=== PATIENT | male | born 1955 | race Caucasian/White ===

== ENCOUNTER 2025-04-02 20:28 | Inpatient (IN) | payer OTHER ==
[~2025-04-02] VITALS: Ht 175.3 cm; Wt 75.0 kg
[2025-04-02 21:40] LABS: Basophils # (auto) 0 10 ^3/uL (0-0.2); Basophils % (auto) 0.1 % (0.0-2.0); Eosinophils # (auto) 0 10 ^3/uL (0-0.8); Hematocrit 30.3 % (41.0-53.0); Hemoglobin 10.6 g/dL (13.5-17.5); Lymphocytes # (auto) 0.6 10 ^3/uL (0.4-5.4); Lymphocytes % (auto) 4.4 % (10.0-50.0); Mean Corpuscular Hgb Conc. 35.1 g/dL (32.0-36.0); Monocytes # (auto) 0.5 10 ^3/uL (0-1.3); Monocytes % (auto) 3.4 % (0.0-12.0); Neutrophils # (auto) 12.4 10 ^3/uL (1.6-8.6); Neutrophils % (auto) 92.1 % (37.0-80.0); Platelet Count (auto) 201 10^3/uL (140-450); Red Blood Cells 3.22 10^6/uL (4.5-5.90); White Blood Cell 13.4 10^3/uL (4.4-10.8)
--- NOTE | 2025-04-02 21:42 | ECG ---
[facility] Test Date: 2025-04-02 Test Time: 20:50:31 Pat Name: DICK LEVINE Department: ED Room: 0296T Gender: M Director Advanced: NAZ : 1955 Requested By: JANEL RIVERA Order Number: [id number] Reading MD: Raymundo Yates Measurements Intervals [place] Rate: 51 P: 70 NC: 160 QRS: 13 QRSD: 105 T: -22 QT: 444 QTc: 409 Interpretive Statements Sinus rhythm RSR' in V1 or V2, probably normal variant Borderline T abnormalities, inferior leads Electronically Signed On 04-04-2025 12:47:20 PDT by Raymundo Yates Please click the below link to view image of tracing.
[2025-04-02 21:50] LABS: Chloride 102 mmol/L (98-107); Potassium 4.1 mmol/L (3.5-5.1); Sodium 133 mmol/L (136-145)
[2025-04-02 21:51] LABS: Anion Gap 10 (5-15); Calcium 8.3 mg/dL (8.7-10.4); Carbon Dioxide 21 mmol/L (20-31)
[2025-04-02 21:56] LABS: BUN/Creatinine Ratio 16.3 (10.0-20.0); Blood Urea Nitrogen 17 mg/dL (9-23)
[2025-04-02 21:59] LABS: Glucose 160 mg/dL (74-106)
[2025-04-02] MEDS: SODIUM CHLORIDE 0.9% 1,000 ML IV ONE (22:10)
[2025-04-02] MEDS: SODIUM CHLORIDE 0.9% 500 ML IV ONE (22:15)
--- NOTE | 2025-04-02 23:09 | ED.PDOC ---
History of Present Illness HPI Comments 69 y/o M, with history of HLD and HTN, is BIBA for c/o syncope. Per EMS report, patient was in his vehicle on-the-way home after being discharged from recent hospitalization for left-knee replacement when he had a sudden syncopal episode. Spouse called EMS, endorsing further on patient displaying seizure-like activity, characterized by the patient's "eyes rolling back" and having "full- body shaking," in addition to patient vomiting 1x with brown vomitus. He is reported to have drank a chocolate malt prior and has no previous history of seizures in the past. He was noted to have been hypotensive, with a systolic pressure in the 90's, and was given 250ml NS bolus en route, with last systolic pressure reported to have been in the 120's. At time of assessment, patient endorses on being dizzy, with associated nausea, currently. Denies any recent injuries or ailment. Denies having any injuries, signs of incontinence, weakness, numbness, tingling, vision or speech changes, shortness of breath, or chest pain. Chief Complaint: Syncope Time Seen by MD: 21:00 Reviewed Notes: Nurses Notes, Agency Sales Representative Notes, Medications, Allergies Allergies: Coded Allergies: NO KNOWN ALLERGIES (Unverified , 04/02/25) Information Source: Patient, Emergency Med Personnel Mode of Arrival: EMS Severity: Moderate Timing: Hours Duration: Minutes Prehospital treatment: 12 Lead EKG, Accucheck, Is Technician, IVF Review of Systems: REVIEW OF SYSTEMS: No fever, no chills, or fatigue HEENT: No sore throat, no earache, no congestion, no neck pain. Cardiac: Syncope. No chest pain. No palpitations. Lungs: No shortness of breath, no cough. GI: Nausea, no vomiting, no diarrhea, no constipation, no abdominal pain : No dysuria, frequency, or urgency. No hematuria. Musculoskeletal: No joint pain , no joint swelling, no extremity edema. Skin: No rash, no itching. Neuro: Dizziness. No headache, no weakness Vital Signs Vital Signs Date Time Temp Pulse Resp B/P (MAP) Pulse Ox O2 Delivery O2 Flow Rate FiO2 04/02/25 23:29 53 11 97 Room Air* 0 21 04/02/25 23:29 97.5 106/45 (65) 97.5 Physical Exam General: Awake, alert and oriented. No acute distress. Skin: Skin in warm, dry and intact. Appropriate color for ethnicity. HEENT: The head is normocephalic and atraumatic. Conjunctivae are clear without exudates or hemorrhage. Sclera is non-icteric. EOM are intact. No signs of nystagmus. Eyelids are normal in appearance without swelling or lesions. Oral mucosa is pink and moist Neck: The neck is supple with normal range of motion. No JVD. Cardiac: Heart rate and rhythm are normal. No murmurs, gallops, or rubs are auscultated. Respiratory: No signs of respiratory distress. Lung sounds are clear in all lobes bilaterally without rales, rhonchi, or wheezes. Abdominal: Abdomen is soft, non-tender without distention, guarding or rigidity. Bowel sounds are present and normoactive in all four quadrants. Extremities: Upper and lower extremities are atraumatic in appearance without deformity or edema. Neurological: The patient is awake, alert and oriented to person, place, and time with normal speech. Speech is clear. There is no facial asymmetry. Moving all extremities spontaneously; no upper or lower extremity weakness. Psychiatric: Appropriate mood and affect. Good judgement and insight. Past Medical History PAST MEDICAL HISTORY: High Lipids, HTN Surgical History: Denies all surgeries Family History Family History: Unknown Social History Smoker: Non-Smoker Alcohol: Denies ETOH Use Drugs: Denies Drug Use Lives In: Home Was a procedure done? Was a procedure done?: No EKG EKG : Pulse Rate (adult): 51 [place]: Normal Cardiac Rhythm: NSR Block: None Hypertrophy: None ST: Normal Comments No STEMI Differential Dx Considerations may include: Differential diagnoses considered include but are not limited to cardiac structural disease, arrhythmia, acute coronary syndrome, orthostasis, pulmonary embolism, dissection, seizure, basilar stroke, other. X-Ray, Labs, Meds, VS Vital Signs Date Time Temp Pulse Resp B/P (MAP) Pulse Ox O2 Delivery O2 Flow Rate FiO2 04/02/25 23:29 53 11 97 Room Air* 0 21 04/02/25 23:29 97.5 53 11 106/45 (65) 97 97.5 04/02/25 23:09 51 04/02/25 20:55 98.4 60 18 120/56 (77) 99 98.4 04/02/25 20:50 51 Lab Test 04/02/25 22:51 04/02/25 21:20 Range/Units Sodium Level 133 L 133 L 136-145 mmol/L Potassium Level 4.2 4.1 3.5-5.1 mmol/L Chloride Level 102 102 98-107 mmol/L Carbon Dioxide Level 23 21 20-31 mmol/L Anion Gap 8 10 5-15 Blood Urea Nitrogen 21 17 9-23 mg/dL Creatinine 1.03 1.04 0.700-1.30 mg/dL Glomerular Filtration Rate Calc 78 77 >90 mL/min BUN/Creatinine Ratio 20.4 H 16.3 10.0-20.0 Serum Glucose 140 H 160 H 74-106 mg/dL Calcium Level 7.9 L 8.3 L 8.7-10.4 mg/dL Total Bilirubin 1.2 H 0.2-1.0 mg/dL Aspartate Amino Transferase (AST) 21 13-40 U/L Alanine Aminotransferase (ALT) 29 7-40 U/L Alkaline Phosphatase 32 L 46-116 U/L Troponin I High Sensitivity 31 22 </=54 ng/L B-Type Natriuretic Peptide 52.26 0-100 pg/mL Total Protein 5.0 L 5.7-8.2 g/dL Albumin 3.2 3.2-4.8 g/dL White Blood Count 13.4 H 4.4-10.8 10^3/uL Red Blood Count 3.22 L 4.5-5.90 10^6/uL Hemoglobin 10.6 L 13.5-17.5 g/dL Hematocrit 30.3 L 41.0-53.0 % Mean Corpuscular Volume 94.0 80.0-100.0 fL Mean Corpuscular Hemoglobin 33.0 H 28.0-32.0 pg Mean Corpuscular Hemoglobin Concent 35.1 32.0-36.0 g/dL Red Cell Distribution Width 13.0 11.8-14.3 % Platelet Count 201 140-450 10^3/uL Mean Platelet Volume 7.6 6.9-10.8 fL Neutrophils (%) (Auto) 92.1 H 37.0-80.0 % Lymphocytes (%) (Auto) 4.4 L 10.0-50.0 % Monocytes (%) (Auto) 3.4 0.0-12.0 % Eosinophils (%) (Auto) 0.0 0.0-7.0 % Basophils (%) (Auto) 0.1 0.0-2.0 % Neutrophils # (Auto) 12.4 H 1.6-8.6 10 ^3/uL Lymphocytes # (Auto) 0.6 0.4-5.4 10 ^3/uL Monocytes # (Auto) 0.5 0-1.3 10 ^3/uL Eosinophils # (Auto) 0 0-0.8 10 ^3/uL Basophils # (Auto) 0 0-0.2 10 ^3/uL Nucleated Red Blood Cells 0.0 % Current Medications Medications (Trade) Dose Ordered Sig/[place] Route Start Time Stop Time Status Last Admin Sodium Chloride 1,000 ml @ 1,000 mls/hr Q1H ONCE IV 04/02/25 22:15 04/02/25 23:14 DC 04/02/25 22:10 Ondansetron HCl (Zofran) 4 mg ONCE ONCE IV 04/02/25 22:15 04/02/25 22:16 DC 04/02/25 23:53 Sodium Chloride 500 ml @ 500 mls/hr Q1H ONCE IV 04/02/25 22:15 04/02/25 23:14 DC 04/02/25 22:15 Images Reviewed?: Images reviewed and evaluated by me (Independent interpretation of CT head: No acute intracranial hemorrhage, independent interpretation of chest x-ray:) Time of 1ST Reevaluation: 21:30 Reevaluation 1ST: Unchanged Patient Education/Counseling: Need For Follow Up Family Education/Counseling: No Family Present Departure 1 Departure Time of Disposition: 23:40 Impression: Primary Impression: Syncope Additional Impression: Seizure-like activity Disposition: ADMITTED INPATIENT Condition: Stable Comments 69-year-old male sent to the emergency lightheadedness, nausea, possible seizure-like activity witnessed by his . Patient observed in the emergency department with no seizure-like activity. Patient admitted to hospitalist service for further treatment, evaluation and monitoring. Extensive evaluation was performed in attempt to identify or rule out: (See differential diagnosis section) The following tests were ordered, and results were reviewed by me and discussed with patient: (See diagnostic results section) The following test were independently interpreted by me: EKG, chest x-ray, CT head I reviewed and agreed with the following test results read by other providers: Chest x-ray I reviewed the following notes from the pt's past medical encounters: N/A Additional information was gathered from interviewing the following independent historians: EMS personnel, patient's at bedside Discussion of management or test interpretation with external physician/other qualified health special needs child caregiver: N/A Addressed an acute or chronic illness that poses a threat to life or bodily function: Syncope, seizure Decision regarding hospitalization or escalation of hospital level of care: Risk and benefits of admission for further treatment of patient's condition was considered. Due to patient's current clinical condition, high risk of decline and poor outcome if discharged and need for further inpatient management and monitoring, patient will be admitted to the hospital. Drug therapy requiring intensive monitoring for toxicity: N/A Parenteral controlled substances: N/A Decision regarding elective major surgery with identified patient or procedure risk factors: N/A Decision regarding emergency major surgery: N/A Decision not to resuscitate or to de-escalate care because of poor prognosis: N/A Diagnosis or treatment significantly limited by social determinants of health: N/A Critical Care Note Critical Care Time?: No Stability Stability form required: No Heart Score Heart Score: Heart Score Response (Comments) Value History N/A 0 EKG N/A 0 Age N/A 0 Risk Factors N/A 0 Troponin N/A 0 Total 0 I personally scribed for JANEL RIVERA MD ([email or web address]) on 04/02/25 at 23:09. Electronically submitted by Brandon Self ([email or web address]). JANEL RIVERA MD April 02, 2025 23:09
[2025-04-02 23:29] VITALS: PULSE 53; RESP 11; O2SAT 97
[2025-04-02 23:32] LABS: Alanine Aminotransferase 29 U/L (7-40); Albumin 3.2 g/dL (3.2-4.8); Anion Gap 8 (5-15); Aspartate Aminotransferase 21 U/L (13-40); BUN/Creatinine Ratio 20.4 (10.0-20.0); Bilirubin, Total 1.2 mg/dL (0.2-1.0); Blood Urea Nitrogen 21 mg/dL (9-23); Carbon Dioxide 23 mmol/L (20-31); Chloride 102 mmol/L (98-107); Potassium 4.2 mmol/L (3.5-5.1)
[2025-04-02 23:33] LABS: Alkaline Phosphatase 32 U/L (46-116); Calcium 7.9 mg/dL (8.7-10.4); Glucose 140 mg/dL (74-106); Sodium 133 mmol/L (136-145)
--- NOTE | 2025-04-02 23:33 | DVH ---
CLINICAL HISTORY: Seizure-like activity, syncope TECHNIQUE: Helical imaging carried out from skull base to vertex without intravenous contrast. This e xam was performed according to our departmental dose optimization program. Up-to-date CT equipment an d radiation dose reduction techniques are utilized as appropriate. CTDIVol: 54.73 mGy DLP: 986.65 mGy-cm WID: COMPARISON: None FINDINGS: Small round mass along the superior right cerebellar extra-axial space measuring 1.3 cm on series 2, image 22. Incidental bilateral basal ganglia calcifications. The ventricles and subarachnoid spaces are normal in size and configuration. There is no midline wilbur ft or mass effect. The shahid white matter interfaces are maintained. The basal cisterns are patent. Th ere is no evidence of acute intracranial hemorrhage or extra-axial fluid collection. The mastoid air cells and visualized paranasal sinuses are well-aerated. IMPRESSION: 1. No acute intracranial abnormality. 2. Small round mass along the superior right cerebellar extra-axial space measuring 1.3 cm. A possibi lity includes a meningioma. Recommend obtaining contrast-enhanced MRI brain for characterization
[2025-04-02] MEDS: ONDANSETRON HCL 4 MG/2 ML VIAL IV ONE (23:53)
[2025-04-03] VITALS (8 sets, daily range): BP systolic 109–176; BP diastolic 53–87; PULSE 58–81; RESP 18–20; TEMP 97.4–98.6; O2SAT 96–100
[2025-04-03] MEDS ORDERED: MORPHINE SULFATE INJ 2 MG/ml SYRG IV PRN
[2025-04-03] MEDS ORDERED: NITROGLYCERIN 0.4 MG SL TAB SL PRN
--- NOTE | 2025-04-03 00:05 | DVHHP2 ---
History of Present Illness Reason for Visit: Syncope History of Present Illness 69-year-old male presents for evaluation of syncopal episode. Patient reports undergoing a left knee replacement today down the hill as an outpatient. He states that while his was driving him back on he had a syncopal episode in the car lasting approximately 1 minute. Patient reports vomiting and currently having dizziness. No chest pain or palpitations. No similar events in the past. No history of seizure either. Past Medical History Hypertension and dyslipidemia Past Surgical History Denies Family History Noncontributory Smoke: No ALCOHOL: none Drugs: None Lives: with Family Review of Systems Review of Systems Review of systems are currently negative otherwise addressed in HPI. Allergies: Coded Allergies: NO KNOWN ALLERGIES (Unverified , 04/02/25) Medications Current Medications Medications Dose Ordered Sig/[place] Route Start Time Stop Time Status Last Admin Dose Admin Losartan Potassium 25 mg DAILY PO 04/03/25 10:00 Atorvastatin Calcium 40 mg HS PO 04/03/25 22:00 Tamsulosin HCl 0.4 mg QPM PO 04/03/25 18:00 Acetaminophen/ Hydrocodone Bitart 1 tab Q4HP PRN PO 04/03/25 00:00 Ondansetron HCl 4 mg Q4HP PRN IV 04/03/25 00:00 Acetaminophen 650 mg Q6HP PRN PO 04/03/25 00:00 UNV Exam Vital Signs Vital Signs Date Time Temp Pulse Resp B/P (MAP) Pulse Ox O2 Delivery O2 Flow Rate FiO2 04/02/25 23:09 51 04/02/25 20:55 98.4 18 120/56 (77) 99 98.4 Exam Gen: 69-year-old male in no apparent distress. Skin: Warm, dry, normal color and texture, no rash. HEENT: Normocephalic atraumatic, mucous membranes moist and pink. Neck: Cervical and supraclavicular nodes normal without enlargement, trachea is midline, thyroid gland is normal without masses. Pulmonary: Clear to auscultation and percussion bilaterally. Cardiac: Regular rate and rhythm. No murmur Abdomen: Soft, nontender, nondistended, bowel sounds present all 4 quadrants, no guarding, no rigidity, no organomegaly. Extremities: No cyanosis, clubbing, no edema Neuro: Cranial nerves II through XII grossly intact, normal affect and speech, no focal motor deficits. Labs/Xrays ORDERING PHYSICIAN: JANEL RIVERA MD PROCEDURE(s): HWOCT - HEAD WITHOUT CONTRAST REASON: Seizure-like activity, syncope ORDER NUMBER(s): [id number], ACCESSION NUMBER(s): [id number] CLINICAL HISTORY: Seizure-like activity, syncope TECHNIQUE: Helical imaging carried out from skull base to vertex without intravenous contrast. This exam was performed according to our departmental dose optimization program. Up-to-date CT equipment and radiation dose reduction techniques are utilized as appropriate. CTDIVol: 54.73 mGy DLP: 986.65 mGy-cm WID: COMPARISON: None FINDINGS: Small round mass along the superior right cerebellar extra-axial space measuring 1.3 cm on series 2, image 22. Incidental bilateral basal ganglia calcifications. The ventricles and subarachnoid spaces are normal in size and configuration. There is no midline shift or mass effect. The shahid white matter interfaces are maintained. The basal cisterns are patent. There is no evidence of acute intracranial hemorrhage or extra-axial fluid collection. The mastoid air cells and visualized paranasal sinuses are well-aerated. IMPRESSION: 1. No acute intracranial abnormality. 2. Small round mass along the superior right cerebellar extra-axial space measuring 1.3 cm. A possibility includes a meningioma. Recommend obtaining contrast-enhanced MRI brain for characterization Labs Test 04/02/25 22:51 04/02/25 21:20 Range/Units Sodium Level 133 L 136-145 mmol/L Potassium Level 4.2 3.5-5.1 mmol/L Chloride Level 102 98-107 mmol/L Carbon Dioxide Level 23 20-31 mmol/L Anion Gap 8 5-15 Blood Urea Nitrogen 21 9-23 mg/dL Creatinine 1.03 0.700-1.30 mg/dL Glomerular Filtration Rate Calc 78 >90 mL/min BUN/Creatinine Ratio 20.4 H 10.0-20.0 Serum Glucose 140 H 74-106 mg/dL Calcium Level 7.9 L 8.7-10.4 mg/dL Total Bilirubin 1.2 H 0.2-1.0 mg/dL Aspartate Amino Transferase (AST) 21 13-40 U/L Alanine Aminotransferase (ALT) 29 7-40 U/L Alkaline Phosphatase 32 L 46-116 U/L Troponin I High Sensitivity 31 </=54 ng/L B-Type Natriuretic Peptide 52.26 0-100 pg/mL Total Protein 5.0 L 5.7-8.2 g/dL Albumin 3.2 3.2-4.8 g/dL White Blood Count 13.4 H 4.4-10.8 10^3/uL Red Blood Count 3.22 L 4.5-5.90 10^6/uL Hemoglobin 10.6 L 13.5-17.5 g/dL Hematocrit 30.3 L 41.0-53.0 % Mean Corpuscular Volume 94.0 80.0-100.0 fL Mean Corpuscular Hemoglobin 33.0 H 28.0-32.0 pg Mean Corpuscular Hemoglobin Concent 35.1 32.0-36.0 g/dL Red Cell Distribution Width 13.0 11.8-14.3 % Platelet Count 201 140-450 10^3/uL Mean Platelet Volume 7.6 6.9-10.8 fL Neutrophils (%) (Auto) 92.1 H 37.0-80.0 % Lymphocytes (%) (Auto) 4.4 L 10.0-50.0 % Monocytes (%) (Auto) 3.4 0.0-12.0 % Eosinophils (%) (Auto) 0.0 0.0-7.0 % Basophils (%) (Auto) 0.1 0.0-2.0 % Neutrophils # (Auto) 12.4 H 1.6-8.6 10 ^3/uL Lymphocytes # (Auto) 0.6 0.4-5.4 10 ^3/uL Monocytes # (Auto) 0.5 0-1.3 10 ^3/uL Eosinophils # (Auto) 0 0-0.8 10 ^3/uL Basophils # (Auto) 0 0-0.2 10 ^3/uL Nucleated Red Blood Cells 0.0 % Assessment/Plan Assessment/Plan Assessment Syncope Hypertension Questionable meningioma Plan Admit the patient to telemetry to the hospitalist Carotid ultrasound/echocardiogram/MRI of the brain pending Resume home medications Continue treatment per orders. Plan discussed with: Patient My Orders Orders - MANPREET LYON AGACNP Procedure Category Date Status Time Losartan Tablet PHA 04/03/25 In Process (Cozaar Tablet) 10:00 Atorvastatin (Lipitor) PHA 04/03/25 In Process 22:00 Tamsulosin PHA 04/03/25 In Process Hydrochloride (Flomax) 18:00 Basic Metabolic Panel LAB 04/03/25 Transmitted 04:00 Admit ADMIT 04/02/25 Transmitted 23:53 Hydrocodone-Acet PHA 04/03/25 Logged 5/325mg Tab ([place] 00:00 Ondansetron Hcl PHA 04/03/25 Logged (Zofran) 00:00 Complete Blood Count LAB 04/03/25 Verified 04:00 Cardiac DIET 04/03/25 Transmitted Diet-2gna,Lofat,Lochol Breakfast Condition: Fair MIKE 04/02/25 In Process 23:53 Acetaminophen Tablet PHA 04/03/25 Logged (Tylenol Tablet) 00:00 Bedrest With Bathroom MIKE 04/02/25 In Process Privileg 23:53 Nitroglycerin PHA 04/03/25 Transmitted Sublingual ([place]trostat 00:00 Morphine Sulfate PHA 04/03/25 Transmitted Injection 00:00 Stat Ekg For Chest MIKE 04/02/25 In Process Pain 23:53 Notify Md Of Changes MIKE 04/02/25 In Process From Base 23:53 Internet Webmaster For MIKE 04/02/25 In Process 24 Hours 23:53 Emergency Dysrhythmia MIKE 04/02/25 In Process Protocol 23:53 Rhythm Strips Once MIKE 04/02/25 In Process Every Shift 23:53 Oxygen By Nasal RT 04/02/25 Transmitted Cannula 23:53 Carotid Duplx W Color US 04/02/25 Logged DOP 23:53 Echo 2d Mode Cardiac US 04/02/25 Logged DOP 23:53 Brain Head Wo Contrast MRI 04/02/25 Logged 23:53 Date of Service: April 02, 2025 Billing Provider: MANPREET LYON Common Visit Codes: [id number] INP/OBS CARE (HIGH) MANPREET LYON April 03, 2025 00:04
[2025-04-03] MEDS: HYDROcodone-ACET 5/325MG TAB PO PRN (00:46)
--- NOTE | 2025-04-03 00:58 | DVH ---
EXAM: XY CHEST XRAY 1 VIEW CLINICAL HISTORY: Syncope TECHNIQUE: Single AP view of the chest WID: COMPARISON: None FINDINGS: Lines and tubes: None Chest: The heart size and pulmonary vasculature is within normal limits. Calcified plaque projects over the aortic arch. No pleural effusion, pneumothorax, or consolidation. The osseous structures are grossly intact. IMPRESSION: No acute cardiopulmonary abnormality.
--- NOTE | 2025-04-03 01:03 | DVH ---
US CAROTID DOPPLER CLINICAL INDICATION: syncope TECHNIQUE: Multiple grayscale, color Doppler and spectral Doppler ultrasound images were obtained thr oughout both carotid systems. COMPARISON: None FINDINGS: RIGHT: CCA PSV: 93 cm/s ECA PSV: 115 cm/s ICA PSV: 100 cm/s ICA EDV: 23 cm/s ICA/CCA Ratio: 1.1 Vertebral artery: Patent, antegrade flow. Mild calcified Atherosclerotic plaque at the carotid bulb. Grayscale images demonstrate no visible s tenosis. Spectral analysis demonstrates no hemodynamically significant CCA or ICA stenosis. LEFT: CCA PSV: 127 cm/s ECA PSV: 177 cm/s ICA PSV: 102 cm/s ICA EDV: 19 cm/s ICA/CCA Ratio: 0.8 Vertebral artery: Patent, antegrade flow. Mild calcified atherosclerotic plaque in the left carotid bulb. Grayscale images demonstrate no visi ble stenosis. Spectral analysis demonstrates no hemodynamically significant CCA or ICA stenosis. IMPRESSION: No evidence of hemodynamically significant CCA or ICA stenosis.
[2025-04-03] MEDS ORDERED: RIVSET PO (06:18)
[2025-04-03] MEDS ORDERED: MELO7.5T7 PO (06:18)
[2025-04-03] MEDS ORDERED: PERCOT PO (06:18)
[2025-04-03] MEDS: ACETAMINOPHEN 325 MG TAB PO PRN (06:44)
[2025-04-03 07:43] LABS: Anion Gap 9 (5-15); Carbon Dioxide 23 mmol/L (20-31); Chloride 104 mmol/L (98-107); Potassium 4.1 mmol/L (3.5-5.1); Sodium 136 mmol/L (136-145)
[2025-04-03 07:49] LABS: BUN/Creatinine Ratio 17.6 (10.0-20.0); Blood Urea Nitrogen 21 mg/dL (9-23)
[2025-04-03 07:50] LABS: Calcium 8.6 mg/dL (8.7-10.4); Glucose 123 mg/dL (74-106)
[2025-04-03 08:02] LABS: Basophils # (auto) 0 10 ^3/uL (0-0.2); Basophils % (auto) 0.2 % (0.0-2.0); Eosinophils # (auto) 0 10 ^3/uL (0-0.8); Eosinophils % (auto) 0.1 % (0.0-7.0); Hematocrit 28.4 % (41.0-53.0); Hemoglobin 10.2 g/dL (13.5-17.5); Lymphocytes # (auto) 1.2 10 ^3/uL (0.4-5.4); Lymphocytes % (auto) 10.2 % (10.0-50.0); Mean Corpuscular Hemoglobin 33.7 pg (28.0-32.0); Mean Corpuscular Hgb Conc. 35.7 g/dL (32.0-36.0); Mean Corpuscular Volume 94.2 fL (80.0-100.0); Monocytes % (auto) 8.6 % (0.0-12.0); Neutrophils # (auto) 9.9 10 ^3/uL (1.6-8.6); Neutrophils % (auto) 80.9 % (37.0-80.0); Nucleated Red Blood Cells % 0.1 %; Platelet Count (auto) 220 10^3/uL (140-450); Red Blood Cells 3.02 10^6/uL (4.5-5.90); White Blood Cell 12.2 10^3/uL (4.4-10.8)
[2025-04-03] MEDS: LOSARTAN POTASSIUM 25 MG TAB PO SCH (09:09)
[2025-04-03] MEDS ORDERED: TAMS0.4C39 PO (09:17)
[2025-04-03] MEDS ORDERED: ATOR-507 PO (09:17)
[2025-04-03] MEDS ORDERED: LOSA-533 PO (09:17)
[2025-04-03] MEDS ORDERED: AMLO1TAB22 PO (09:17)
--- NOTE | 2025-04-03 11:06 | DVH ---
EXAMINATION: MRI BRAIN HEAD WO CONTRAST INDICATION: dizziness COMPARISON: CT head 04/02/2025 TECHNIQUE: Multiplanar, multisequence magnetic resonance imaging of the brain was performed without t he use of intravenous contrast. FINDINGS: There is a 1.4 cm right posterior cranial fossa meningioma, superior to the right cerebellum. There i s no significant associated mass effect. There are no adjacent parenchymal signal changes. There is no restricted diffusion. The shahid and white matter signal is appropriate. There is no eviden ce of hemorrhage, mass, mass effect or midline shift. There is no hydrocephalus or extra-axial fluid collection. The visualized intracranial vasculature demonstrates appropriate flow-voids. The sagittal midline structures appear unremarkable. The craniocervical junction is within normal limits. The pal varium demonstrates normal marrow signal. The paranasal sinuses and mastoid air cells are clear. Ther e is nonspecific magnetic susceptibility artifact in the right anterior frontal scalp region. IMPRESSION: 1. There is no acute intracranial process. 2. 1.4 cm meningioma in the right posterior cranial fossa, superior to the right cerebellum. HS:Y
--- NOTE | 2025-04-03 11:37 | DVHPN2 ---
Progress Note Date Seen: April 03, 2025 Medical Necessity Reason Pt with a Central, PICC or Fol: No Subjective Patient reports: No new complaints Review of Systems: HEENT:Normal, CVS:Normal, RESPIRATORY:Normal, GI:Normal, :Normal, MSK:Normal, NEURO:Normal Objective vital signs Vital Sign Date Time Temp Pulse Resp B/P (MAP) Pulse Ox O2 Delivery O2 Flow Rate FiO2 04/03/25 09:09 114/53 04/03/25 09:00 98.6 58 18 98 98.6 04/03/25 03:30 Room Air* 0 21 Total Intake and Output 04/02/25 04/02/25 04/03/25 15:00 23:00 07:00 Intake Total 1500 ml Balance 1500 ml medications Current Medications Medications Dose Ordered Sig/[place] Route Start Time Stop Time Status Last Admin Dose Admin Losartan Potassium 25 mg DAILY PO 04/03/25 10:00 Atorvastatin Calcium 40 mg HS PO 04/03/25 22:00 Tamsulosin HCl 0.4 mg QPM PO 04/03/25 18:00 Acetaminophen/ Hydrocodone Bitart 1 tab Q4HP PRN PO 04/03/25 00:00 04/03/25 09:10 1 TAB Ondansetron HCl 4 mg Q4HP PRN IV 04/03/25 00:00 Acetaminophen 650 mg Q6HP PRN PO 04/03/25 00:00 04/03/25 06:44 650 MG Nitroglycerin 0.4 mg Q5MINP PRN SL 04/03/25 00:00 Morphine Sulfate 2 mg Q30M PRN IV 04/03/25 00:00 Examination: GENERAL:Normal, HEENT:Normal, NECK:Normal, LUNGS:Normal, CVS:Normal, ABDOMEN:Normal, MSK:Normal, MSK:Abnormal (left knee dressing), SKIN:Normal, NEURO:Normal, :Normal laboratory and microbiology Laboratory Tests 04/03/25 06:58 Test 04/03/25 06:58 Range/Units Serum Glucose 123 H 74-106 mg/dL Problem List/Assessment/Plan Problem List/Assessment/Plan #1 ?syncopy ?seizure: neuro eval, ivf #2 s/p left knee surgery #3 htn #4 hyperlipidemia advance care planning- full code- time spent 18 mins Plan discussed with: Patient, Spouse Date of Service: April 03, 2025 Billing Provider: MANPREET SY MD Common Visit Codes: [id number] INP/OBS CARE(HIGH) Secondary Visit Codes: [id number] CARE PLAN 30 MINUTES MANPREET SY MD April 03, 2025 11:37
[2025-04-03] MEDS: DOCUSATE SOD 100 MG CAP PO PRN (12:49)
[2025-04-03] MEDS: OXYCODONE W/ ACETAMINOPHEN 5/325MG TABLET PO PRN (12:50)
[2025-04-03] MEDS: SODIUM CHLORIDE 0.9% 1,000 ML IV SCH (12:55)
[2025-04-03] MEDS: TAMSULOSIN HYDROCHLORIDE 0.4 MG CAP PO SCH (17:27)
[2025-04-03] MEDS: ATORVASTATIN 20 MG TAB PO SCH (21:25)
[2025-04-03 22:34] LABS: Urine Bacteria None Seen /hpf (None Seen)
[2025-04-03 22:47] LABS: Urine Blood Negative /uL (Negative); Urine Clarity Clear (Clear); Urine Color Light-Yellow (Yellow); Urine Protein, UAD Negative (Negative); Urine Specific Gravity 1.009 (1.001-1.035); Urine Squamous Epithelial Cell None Seen /hpf (<5); Urine Urobilinogen Normal (Negative); Urine WBC < 1 /HPF (0-3); Urine pH 5.5 (5.0-9.0)
--- NOTE | 2025-04-03 23:14 | DVHINCON2 ---
Date of service: April 03, [address] العلي Reason for Consultation Syncope History of Present Illness Mr. Lee is a 69 years old right-handed gentleman with a history of hypertension, diabetes, he came to the [facility] on 04/02/2025 with a chief company of seizure-like activity. He went through left knee replacement on 04/02/2025, and when he was writing his 's car home, he had intense pain in the left knee, meanwhile he developed dizziness/lightheadedness, nausea, blurry vision, and when he woke up, he was said to have seizure (shaking all over the body, eyes rolling back, nonresponsiveness for 1 minute). Woke with clear sensorium, and this event was not associated with chest pain, palpitation, increased sweating. EMS noticed hypotension with systolic blood pressure in the 90s, and he was treated with normal saline bolus. The patient was never had similar problem before, he denies history of stroke, seizure disorder UA, 04/03/2025: WBC: 1, urine leukocyte esterase: Negative WBC/HB/PLT/MCV, 04/03/2025: 12.2/10.2/220/94.2 CMP, 04/02/2025: Unremarkable Carotid Doppler, 04/03/2025: No evidence of hemodynamically significant CCA or ICA stenosis MRI head, 04/03/2025: 1. There is no acute intracranial process. 2. 1.4 cm meningioma in the right posterior cranial fossa, superior to the right cerebellum. Past Medical History Hypertension, dyslipidemia Past Surgical History Left knee replacement Family History: Diabetes mellitus G8 MOTHER G8 FATHER Hypertension G8 MOTHER G8 FATHER Family History Hypertension, diabetes Social History He is not a tobacco smoke, he denies a history of alcohol or recreational substance abuse Allergies: Coded Allergies: NO KNOWN ALLERGIES (Unverified , 04/02/25) Home Meds Reported Medications Tamsulosin Hcl (Tamsulosin Hcl) 0.4 Mg Cap, 0.4 MG PO QPM for 30 Days, MG 04/03/25 Amlodipine Besylate (Amlodipine Besylate) 5 Mg Tab, 5 MG PO DAILY for 30 Days, MG 04/03/25 Losartan Potassium (Losartan Potassium) 25 Mg Tab, 25 MG PO DAILY for 30 Days, MG 04/03/25 Atorvastatin Calcium (Lipitor) 40 Mg Tab, 1 TAB PO DAILY, #30 TAB 5 Refills 04/03/25 Rivaroxaban (Xarelto) 10 Mg Tab, 10 MG PO DAILY for 30 Days, #30 TAB 04/03/25 Oxycodone W/ Acetaminophen (Percocet 5/325MG) 1 Tab Tb, PO, #90 TAB Percocet 10-325mg Take one tablet every 6-8 hours for pain 04/03/25 Meloxicam (Meloxicam) 7.5 Mg Tab, PO DAILY, TAB take 1-2 tablets for pain 04/03/25 Current Medications Current Medications Medications (Trade) Dose Ordered Sig/[place] Route PRN Reason Start Time Stop Time Status Last Admin Losartan Potassium (Cozaar Tablet) 25 mg DAILY PO 04/03/25 10:00 04/03/25 11:35 DC Atorvastatin Calcium (Lipitor) 40 mg HS PO 04/03/25 22:00 04/03/25 21:25 Tamsulosin HCl (Flomax) 0.4 mg QPM PO 04/03/25 18:00 04/03/25 17:27 Acetaminophen/ Hydrocodone Bitart (Dexter 5/325MG Tab) 1 tab Q4HP PRN PO MODERATE PAIN (4-6 PAIN SCALE) 04/03/25 00:00 04/03/25 11:35 DC 04/03/25 09:10 Ondansetron HCl (Zofran) 4 mg Q4HP PRN IV NAUSEA / VOMITING 04/03/25 00:00 Acetaminophen (Tylenol Tablet) 650 mg Q6HP PRN PO PAIN SCALE 1-3 OR TEMP>100.4 04/03/25 00:00 04/03/25 06:44 Nitroglycerin (Ntrostat Sublingual) 0.4 mg Q5MINP PRN SL FOR CHEST PAIN 04/03/25 00:00 Morphine Sulfate 2 mg Q30M PRN IV FOR CHEST PAIN 04/03/25 00:00 Sodium Chloride 1,000 ml @ 75 mls/hr [id number] IV 04/03/25 11:45 04/03/25 12:55 Oxycodone/ Acetaminophen (Percocet 5/ 325MG Tablet) 1 tab Q4HP PRN PO MODERATE PAIN (4-6 PAIN SCALE) 04/03/25 11:45 04/03/25 21:27 Rivaroxaban (Xarelto Tablet) 10 mg DAILY PO 04/04/25 10:00 Docusate Sodium (Colace Capsule) 100 mg BIDPRN PRN PO FOR CONSTIPATION 04/03/25 11:45 04/03/25 12:49 Review of Systems As above, the other systems are negative Vital Signs Vital Signs Date Time Temp Pulse Resp B/P (MAP) Pulse Ox O2 Delivery O2 Flow Rate FiO2 04/03/25 21:00 79 176/82 (113) 04/03/25 21:00 97.4 18 96 97.4 04/03/25 08:15 Room Air* 0 21 Physical Exam GENERAL EXAM: General: the patient is well developed and nourished. No acute distress. HEENT: Normocephalic, neck is supple, no carotid bruits. No mass. RESPIRATORY: Normal respiratory effort with symmetrical lung expansion. Lungs clear to auscultation. CARDIOVASCULAR: Regular rate and rhythm with no murmurs. S1, S2. ABDOMEN: Soft, nontender, normal bowel sound NEUROLOGICAL: MENTAL STATUS: Awake and alert. Oriented to person, place, time and general circumstances. Able to give personal history. SPEECH, LANGUAGE, HIGHER CORTICAL FUNCTION: no aphasia or dysathria. CRANIAL NERVES: #2: Intact visual knapp to confrontation. The optic discs were sharp. #3,4,6: Pupils are equal, round and reactive. EOMs full and conjugate. No nystagmus. #5: Facial sensation intact in all three divisions bilaterally. Mandibular strength intact. #7: Facial muscles symmetrical and strength intact. #8: Hearing grossly normal to voice. #9,10: Uvula and soft palate rise in the midline. Swallow and voice are normal. #11: Trapezius and sternomastoid strength intact bilaterally. #12: Tongue midline. No fasciculations or atrophy. SENSATION: Sensation to touch and pinprick is normal. MOTOR: Normal tone in the upper and lower extremity. Normal muscle bulk. No fasciculations. No abnormal movements or posturing. Muscle strength of the major groups in the upper and right lower extremities is 5/5, he can move the left lower extremity. REFLEXES: Deep tendon reflexes are symmetrical (status post left knee replacement). No pathological reflexes. CEREBELLAR/COORDINATION: Finger to nose is normal bilaterally. GAIT/STATION: deferred. Labs/Diagnostic Data Labs Test 04/03/25 21:30 04/03/25 06:58 04/03/25 00:32 04/02/25 22:51 Range/Units Urine Color Light-yellow Yellow Urine Clarity Clear Clear Urine pH 5.5 5.0-9.0 Urine Specific [place] 1.009 1.001-1.035 Urine Protein Negative Negative Urine Ketones Negative Negative Urine Blood Negative Negative /uL Urine Nitrite Negative Negative Urine Bilirubin Negative Negative Urine Urobilinogen Normal Negative mg/dL Urine Leukocyte Esterase Negative Negative /uL Urine RBC 2 0 - 3 /hpf Urine Microscopic WBC < 1 0-3 /HPF Urine Squamous Epithelial Cells None seen <5 /hpf Urine Bacteria None seen None Seen /hpf Urine Glucose Normal Normal mg/dL White Blood Count 12.2 H 4.4-10.8 10^3/uL Red Blood Count 3.02 L 4.5-5.90 10^6/uL Hemoglobin 10.2 L 13.5-17.5 g/dL Hematocrit 28.4 L 41.0-53.0 % Mean Corpuscular Volume 94.2 80.0-100.0 fL Mean Corpuscular Hemoglobin 33.7 H 28.0-32.0 pg Mean Corpuscular Hemoglobin Concent 35.7 32.0-36.0 g/dL Red Cell Distribution Width 13.0 11.8-14.3 % Platelet Count 220 140-450 10^3/uL Mean Platelet Volume 7.8 6.9-10.8 fL Neutrophils (%) (Auto) 80.9 H 37.0-80.0 % Lymphocytes (%) (Auto) 10.2 10.0-50.0 % Monocytes (%) (Auto) 8.6 0.0-12.0 % Eosinophils (%) (Auto) 0.1 0.0-7.0 % Basophils (%) (Auto) 0.2 0.0-2.0 % Neutrophils # (Auto) 9.9 H 1.6-8.6 10 ^3/uL Lymphocytes # (Auto) 1.2 0.4-5.4 10 ^3/uL Monocytes # (Auto) 1.0 0-1.3 10 ^3/uL Eosinophils # (Auto) 0 0-0.8 10 ^3/uL Basophils # (Auto) 0 0-0.2 10 ^3/uL Nucleated Red Blood Cells 0.1 % Sodium Level 136 136-145 mmol/L Potassium Level 4.1 3.5-5.1 mmol/L Chloride Level 104 98-107 mmol/L Carbon Dioxide Level 23 20-31 mmol/L Anion Gap 9 5-15 Blood Urea Nitrogen 21 9-23 mg/dL Creatinine 1.19 0.700-1.30 mg/dL Glomerular Filtration Rate Calc 65 >90 mL/min BUN/Creatinine Ratio 17.6 10.0-20.0 Serum Glucose 123 H 74-106 mg/dL Calcium Level 8.6 L 8.7-10.4 mg/dL Troponin I High Sensitivity 31 </=54 ng/L Total Bilirubin 1.2 H 0.2-1.0 mg/dL Aspartate Amino Transferase (AST) 21 13-40 U/L Alanine Aminotransferase (ALT) 29 7-40 U/L Alkaline Phosphatase 32 L 46-116 U/L B-Type Natriuretic Peptide 52.26 0-100 pg/mL Total Protein 5.0 L 5.7-8.2 g/dL Albumin 3.2 3.2-4.8 g/dL Assessment Passing with generalized convulsion Convulsive syncope secondary to and seizure agent effects, intense pain Grand mal seizure, less likely Status post left knee replacement Meningioma Plan/Recommendation Monitoring Supportive treatment Telemetry EEG Xarelto 10 mg daily Ativan for seizure activity Preventive seizure treatment is not indicated More recommendation per clinical course This medical document was created using an electronic medical record system with [employer] dictation system. Although this document has been carefully reviewed, there may still be some phonetic and typographical errors. These areas are purely typographical due to imperfections of the software programs, and do not reflect any compromise in the patient's medical care Plan discussed with: Patient, Other KERI ZHANG MD April 03, 2025 23:14
[2025-04-04] VITALS (7 sets, daily range): BP systolic 111–143; BP diastolic 62–91; PULSE 62–93; RESP 17–20; TEMP 97.7–99.1; O2SAT 96–98
[2025-04-04 07:31] LABS: Basophils # (auto) 0 10 ^3/uL (0-0.2); Basophils % (auto) 0.5 % (0.0-2.0); Eosinophils # (auto) 0.1 10 ^3/uL (0-0.8); Eosinophils % (auto) 1.4 % (0.0-7.0); Hematocrit 26.2 % (41.0-53.0); Hemoglobin 9.4 g/dL (13.5-17.5); Lymphocytes # (auto) 1.4 10 ^3/uL (0.4-5.4); Lymphocytes % (auto) 20.4 % (10.0-50.0); Mean Corpuscular Hemoglobin 33.8 pg (28.0-32.0); Mean Corpuscular Hgb Conc. 35.8 g/dL (32.0-36.0); Mean Corpuscular Volume 94.4 fL (80.0-100.0); Monocytes # (auto) 0.8 10 ^3/uL (0-1.3); Monocytes % (auto) 11.5 % (0.0-12.0); Neutrophils # (auto) 4.7 10 ^3/uL (1.6-8.6); Neutrophils % (auto) 66.2 % (37.0-80.0); Nucleated Red Blood Cells % 0.2 %; Platelet Count (auto) 192 10^3/uL (140-450); Red Blood Cells 2.78 10^6/uL (4.5-5.90); Red Cell Distribution Width 13.3 % (11.8-14.3); White Blood Cell 7.1 10^3/uL (4.4-10.8)
[2025-04-04 07:39] LABS: Potassium 3.9 mmol/L (3.5-5.1); Sodium 140 mmol/L (136-145)
[2025-04-04 07:40] LABS: Anion Gap 7 (5-15); Carbon Dioxide 25 mmol/L (20-31)
[2025-04-04 07:46] LABS: BUN/Creatinine Ratio 16.5 (10.0-20.0); Blood Urea Nitrogen 17 mg/dL (9-23)
[2025-04-04 07:50] LABS: Calcium 8.6 mg/dL (8.7-10.4); Chloride 108 mmol/L (98-107); Glucose 108 mg/dL (74-106)
[2025-04-04] MEDS: RIVAROXABAN 10 MG TAB PO SCH (08:12)
--- NOTE | 2025-04-04 11:04 | DVHPN2 ---
Progress Note - Dictate Date Seen: April 04, 2025 Medical Necessity Reason Pt with a Central, PICC or Fol: No Subjective Mr. Lee is a 69 years old right-handed gentleman with a history of hypertension, diabetes, he came to the [facility] on 04/02/2025 with a chief company of seizure-like activity. I have seen and examined the patient, I have talked to his nurse, physical therapist, the case discussed with Dr. العلي. He is doing fine, fully oriented, no new complaints Orthostatic vitals were fine Hypotension noticed but not today UA, 04/03/2025: WBC: 1, urine leukocyte esterase: Negative WBC/HB/PLT/MCV, 04/03/2025: 12.2/10.2/220/94.2 CMP, 04/02/2025: Unremarkable Carotid Doppler, 04/03/2025: No evidence of hemodynamically significant CCA or ICA stenosis MRI head, 04/03/2025: 1. There is no acute intracranial process. 2. 1.4 cm meningioma in the right posterior cranial fossa, superior to the right cerebellum. vital signs Vital Sign Date Time Temp Pulse Resp B/P (MAP) Pulse Ox O2 Delivery O2 Flow Rate FiO2 04/04/25 09:00 99.1 71 18 139/70 (93) 97 99.1 04/04/25 08:15 Room Air* 0 21 Total Intake and Output 04/03/25 04/03/25 04/04/25 15:00 23:00 07:00 Intake Total 1130 ml 650 ml Output Total 1550 ml 2250 ml Balance -420 ml -1600 ml medications Current Medications Medications Dose Ordered Sig/[place] Route Start Time Stop Time Status Last Admin Dose Admin Atorvastatin Calcium 40 mg HS PO 04/03/25 22:00 04/03/25 21:25 40 MG Tamsulosin HCl 0.4 mg QPM PO 04/03/25 18:00 04/03/25 17:27 0.4 MG Ondansetron HCl 4 mg Q4HP PRN IV 04/03/25 00:00 Acetaminophen 650 mg Q6HP PRN PO 04/03/25 00:00 04/04/25 08:12 650 MG Nitroglycerin 0.4 mg Q5MINP PRN SL 04/03/25 00:00 Morphine Sulfate 2 mg Q30M PRN IV 04/03/25 00:00 Sodium Chloride 1,000 ml @ 75 mls/hr [id number] IV 04/03/25 11:45 04/03/25 12:55 75 MLS/HR Oxycodone/ Acetaminophen 1 tab Q4HP PRN PO 04/03/25 11:45 04/04/25 10:47 1 TAB Rivaroxaban 10 mg DAILY PO 04/04/25 10:00 04/04/25 08:12 10 MG Docusate Sodium 100 mg BIDPRN PRN PO 04/03/25 11:45 04/04/25 10:47 100 MG objective General: the patient is well developed and nourished. No acute distress. MENTAL STATUS: Awake and alert. Oriented to person, place, time and general circumstances. Able to give personal history. SPEECH, LANGUAGE, HIGHER CORTICAL FUNCTION: no aphasia or dysathria. CRANIAL NERVES: Pupils are equal, round and reactive. EOMs full and conjugate. No nystagmus. Facial sensation intact in all three divisions bilaterally. Mandibular strength intact. Facial muscles symmetrical and strength intact. SENSATION: Sensation to touch and pinprick is normal. MOTOR: Normal tone in the upper and lower extremity. Normal muscle bulk. No fasciculations. No abnormal movements or posturing. Muscle strength of the major groups in the upper and right lower extremities is 5/5, he can move the left lower extremity. REFLEXES: Deep tendon reflexes are symmetrical (status post left knee replacement). No pathological reflexes. CEREBELLAR/COORDINATION: Finger to nose is normal bilaterally. GAIT/STATION: deferred laboratory and microbiology Laboratory Tests 04/04/25 06:25 Test 04/04/25 06:25 Range/Units Serum Glucose 108 H 74-106 mg/dL Problem List Passing with generalized convulsion Convulsive syncope secondary to and seizure agent effects, intense pain Grand mal seizure, less likely Status post left knee replacement Meningioma Assessment/Plan Monitoring Supportive treatment Telemetry EEG Xarelto 10 mg daily Ativan for seizure activity Preventive seizure treatment is not indicated More recommendation per clinical course This medical document was created using an electronic medical record system with [employer] system. Although this document has been carefully reviewed, there may still be some phonetic and typographical errors. These areas are purely typographical due to imperfections of the software programs, and do not reflect any compromise in the patient's medical care Prognosis poor Plan discussed with: Patient, Other KERI ZHANG MD April 04, 2025 11:04
--- NOTE | 2025-04-04 11:07 | DVHINCON2 ---
Date of service: April 04, 2025 Referring Physician hospitalist History of Present Illness History Source: Patient, RN Notes, Notes HPI 69-year-old male presents for evaluation of syncopal episode. Patient reports undergoing a left knee replacement today down the hill as an outpatient. He states that while his was driving him back on he had a syncopal episode in the car lasting approximately 1 minute. Patient reports vomiting and currently having dizziness. No chest pain or palpitations. No similar events in the past. No history of seizure either. Past Medical History Hypertension and dyslipidemia Past Surgical History Denies Family History Noncontributory Smoke: No ALCOHOL: none Drugs: None Lives: with Family Home Meds Reported Medications Tamsulosin Hcl (Tamsulosin Hcl) 0.4 Mg Cap, 0.4 MG PO QPM for 30 Days, MG 04/03/25 Amlodipine Besylate (Amlodipine Besylate) 5 Mg Tab, 5 MG PO DAILY for 30 Days, MG 04/03/25 Losartan Potassium (Losartan Potassium) 25 Mg Tab, 25 MG PO DAILY for 30 Days, MG 04/03/25 Atorvastatin Calcium (Lipitor) 40 Mg Tab, 1 TAB PO DAILY, #30 TAB 5 Refills 04/03/25 Rivaroxaban (Xarelto) 10 Mg Tab, 10 MG PO DAILY for 30 Days, #30 TAB 04/03/25 Oxycodone W/ Acetaminophen (Percocet 5/325MG) 1 Tab Tb, PO, #90 TAB Percocet 10-325mg Take one tablet every 6-8 hours for pain 04/03/25 Meloxicam (Meloxicam) 7.5 Mg Tab, PO DAILY, TAB take 1-2 tablets for pain 04/03/25 Past Medical History Patient Family History: Diabetes mellitus G8 MOTHER G8 FATHER Hypertension G8 MOTHER G8 FATHER Review of Systems Genitourinary: Retention H&P Exam Vital Signs Vital Signs Date Time Temp Pulse Resp B/P (MAP) Pulse Ox O2 Delivery O2 Flow Rate FiO2 04/04/25 09:00 99.1 71 18 139/70 (93) 97 99.1 04/04/25 08:15 Room Air* 0 21 General Appeara: Well developed, Well nourished, Normal Appearance Labs/Xrays Labs Test 04/04/25 06:25 04/03/25 21:30 04/03/25 00:32 04/02/25 22:51 Range/Units White Blood Count 7.1 # 4.4-10.8 10^3/uL Red Blood Count 2.78 L 4.5-5.90 10^6/uL Hemoglobin 9.4 L 13.5-17.5 g/dL Hematocrit 26.2 L 41.0-53.0 % Mean Corpuscular Volume 94.4 80.0-100.0 fL Mean Corpuscular Hemoglobin 33.8 H 28.0-32.0 pg Mean Corpuscular Hemoglobin Concent 35.8 32.0-36.0 g/dL Red Cell Distribution Width 13.3 11.8-14.3 % Platelet Count 192 140-450 10^3/uL Mean Platelet Volume 7.7 6.9-10.8 fL Neutrophils (%) (Auto) 66.2 37.0-80.0 % Lymphocytes (%) (Auto) 20.4 10.0-50.0 % Monocytes (%) (Auto) 11.5 0.0-12.0 % Eosinophils (%) (Auto) 1.4 0.0-7.0 % Basophils (%) (Auto) 0.5 0.0-2.0 % Neutrophils # (Auto) 4.7 1.6-8.6 10 ^3/uL Lymphocytes # (Auto) 1.4 0.4-5.4 10 ^3/uL Monocytes # (Auto) 0.8 0-1.3 10 ^3/uL Eosinophils # (Auto) 0.1 0-0.8 10 ^3/uL Basophils # (Auto) 0 0-0.2 10 ^3/uL Nucleated Red Blood Cells 0.2 % Sodium Level 140 136-145 mmol/L Potassium Level 3.9 3.5-5.1 mmol/L Chloride Level 108 H 98-107 mmol/L Carbon Dioxide Level 25 20-31 mmol/L Anion Gap 7 5-15 Blood Urea Nitrogen 17 9-23 mg/dL Creatinine 1.03 0.700-1.30 mg/dL Glomerular Filtration Rate Calc 78 >90 mL/min BUN/Creatinine Ratio 16.5 10.0-20.0 Serum Glucose 108 H 74-106 mg/dL Calcium Level 8.6 L 8.7-10.4 mg/dL Urine Color Light-yellow Yellow Urine Clarity Clear Clear Urine pH 5.5 5.0-9.0 Urine Specific [place] 1.009 1.001-1.035 Urine Protein Negative Negative Urine Ketones Negative Negative Urine Blood Negative Negative /uL Urine Nitrite Negative Negative Urine Bilirubin Negative Negative Urine Urobilinogen Normal Negative mg/dL Urine Leukocyte Esterase Negative Negative /uL Urine RBC 2 0 - 3 /hpf Urine Microscopic WBC < 1 0-3 /HPF Urine Squamous Epithelial Cells None seen <5 /hpf Urine Bacteria None seen None Seen /hpf Urine Glucose Normal Normal mg/dL Troponin I High Sensitivity 31 </=54 ng/L Total Bilirubin 1.2 H 0.2-1.0 mg/dL Aspartate Amino Transferase (AST) 21 13-40 U/L Alanine Aminotransferase (ALT) 29 7-40 U/L Alkaline Phosphatase 32 L 46-116 U/L B-Type Natriuretic Peptide 52.26 0-100 pg/mL Total Protein 5.0 L 5.7-8.2 g/dL Albumin 3.2 3.2-4.8 g/dL Assessment/Plan Problem List: (1) Retention of urine Plan follow up with [facility] d/c [place] with orellana signing off Plan discussed with: Patient, Other YOVANI THOMPSON NP April 04, 2025 11:07
--- NOTE | 2025-04-04 11:18 | DVHPN2 ---
Progress Note Date Seen: April 04, 2025 Medical Necessity Reason Pt with a Central, PICC or Fol: No Subjective Patient reports: No new complaints Review of Systems: HEENT:Normal, CVS:Normal, RESPIRATORY:Normal, GI:Normal, :Normal, MSK:Normal, NEURO:Normal Objective vital signs Vital Sign Date Time Temp Pulse Resp B/P (MAP) Pulse Ox O2 Delivery O2 Flow Rate FiO2 04/04/25 09:00 99.1 71 18 139/70 (93) 97 99.1 04/04/25 08:15 Room Air* 0 21 Total Intake and Output 04/03/25 04/03/25 04/04/25 15:00 23:00 07:00 Intake Total 1130 ml 650 ml Output Total 1550 ml 2250 ml Balance -420 ml -1600 ml medications Current Medications Medications Dose Ordered Sig/[place] Route Start Time Stop Time Status Last Admin Dose Admin Atorvastatin Calcium 40 mg HS PO 04/03/25 22:00 04/03/25 21:25 40 MG Tamsulosin HCl 0.4 mg QPM PO 04/03/25 18:00 04/03/25 17:27 0.4 MG Ondansetron HCl 4 mg Q4HP PRN IV 04/03/25 00:00 Acetaminophen 650 mg Q6HP PRN PO 04/03/25 00:00 04/04/25 08:12 650 MG Nitroglycerin 0.4 mg Q5MINP PRN SL 04/03/25 00:00 Morphine Sulfate 2 mg Q30M PRN IV 04/03/25 00:00 Sodium Chloride 1,000 ml @ 75 mls/hr [id number] IV 04/03/25 11:45 04/03/25 12:55 75 MLS/HR Oxycodone/ Acetaminophen 1 tab Q4HP PRN PO 04/03/25 11:45 04/04/25 10:47 1 TAB Rivaroxaban 10 mg DAILY PO 04/04/25 10:00 04/04/25 08:12 10 MG Docusate Sodium 100 mg BIDPRN PRN PO 04/03/25 11:45 04/04/25 10:47 100 MG Examination: GENERAL:Normal, HEENT:Normal, NECK:Normal, LUNGS:Normal, CVS:Normal, ABDOMEN:Normal, MSK:Normal, MSK:Abnormal (left knee dressing), SKIN:Normal, NEURO:Normal, :Normal laboratory and microbiology Laboratory Tests 04/04/25 06:25 Test 04/04/25 06:25 Range/Units Serum Glucose 108 H 74-106 mg/dL Problem List/Assessment/Plan Problem List/Assessment/Plan #1 ?syncopy ?seizure: neuro eval, eeg #2 s/p left knee surgery #3 htn #4 hyperlipidemia #5 bph with urinary retention: orellana cath, add finasteride advance care planning- full code- time spent 18 mins Plan discussed with: Patient, Spouse My Orders My Orders Orders - MANPREET SY MD Procedure Category Date Status Time Sodium Chloride 0.9% PHA 04/03/25 In Process 11:45 Oxycodone W/ Acet PHA 04/03/25 In Process /325mg Tab (Percocet 11:45 Rivaroxaban Tablet PHA 04/04/25 In Process (Xarelto Tablet) 10:00 Docusate Sodium PHA 04/03/25 In Process Capsule (Colace 11:45 Pt Request For Service PT 04/03/25 Logged 11:32 * Neurology Consult CONS 04/03/25 Transmitted 11:32 Date of Service: April 04, 2025 Billing Provider: MANPREET SY MD Common Visit Codes: [id number] INP/OBS CARE(HIGH) MANPREET SY MD April 04, 2025 11:18
[2025-04-04] MEDS: FINASTERIDE 5 MG TAB PO ONE (11:36)
[2025-04-04] MEDS: LOSARTAN POTASSIUM 25 MG TAB PO ONE (11:37)
--- NOTE | 2025-04-04 16:08 | DVHSR ---
APPROVED REPORT EXAM: Two-dimensional and M-mode echocardiogram with Doppler and color Doppler. Blood Pressure: 123/67 mmHg INDICATION Syncope RISK FACTORS Height: 5'9", Weight: 165 DIMENSIONS LVDd5.1 (3.8-5.7cm)LA (2D)4.6 (1.9-4.0cm)Aortic Root3.5 (2.0-3.7cm) LVDs3.1 (2.5-4.0cm)LA (MM) (1.9-4.0cm)Aortic Cusp Exc2.2 (1.5-2.0cm) EF (%) 70.0 (55-70%)Rt. Atrium3.7 (1.9-4.0cm)Asc. Aorta3.7 cm IVSd1.1 (0.7-1.1cm)RV (D)4.1 (1.8-2.4cm) PWd1.4 (0.7-1.1cm) Mitral Valve MitralMitral Stenosis E wave0.95m/sMV Mean GR.mmHg A wave1.03m/sMV Peak GR.mmHg E/A ratio0.92D MVAcm2 DECEL [id number] 1/2 Timems Aortic Valve Aortic ValveAortic Stenosis V11.10m/Farida Mean GR.6mmHg V21.66m/Farida Peak GR.11mmHg LVOT Diameter2.4 (1.8-2.4cm)Doppler AVA3.00cm2 Pulmonic Valve V21.01m/s Tricuspid Valve TR Velocity2.44m/s [id number] Other Information Technically limited study due to body habitus and patient position. Conclusion Technically difficult study. Sinus rhythm. Mild concentric LVH with mild left atrial enlargement. Mild aortic root enlargement. Normal valves. EF of 60% with normal RV function. Dopplers unremarkable. Mild TR. No pericardial effusion masses or vegetations.
--- NOTE | 2025-04-05 00:05 | DVHEEG2 ---
Neurology EEG Procedural Note Procedural Note EXAM DATE: 04/04/2025 REFERRING DOCTOR: TECHNIQUE: Eighteen channels of EEG, 2 channels of EOG, and 1 channel of EKG were recorded using the International 10/20 system. CLINICAL DATA: The patient was referred for an EEG evaluation for the evidence of seizure disorder. MEDICATIONS: See the chart BACKGROUND ACTIVITY: While the patient was awake, the background activity consisted of well regulated 9 Hz rhythmic waveforms, symmetrically distributed over both posterior quadrants and was reactive to eye opening. ACTIVATION: Hyperventilation: Not done Photic Stimulation: Photic convulsive response Sleep: Noticed IMPRESSION: This is a normal EEG. No focal, lateralized, or epileptiform features are noted. If clinically indicated to rule out a seizure disorder, recommend repeat EEG with sleep deprivation. The EKG channel showed a regular heart rate of 66 per [place] [address]. KERI ZHANG MD April 05, 2025 00:05
[2025-04-05 01:00] VITALS: BP 138/71; PULSE 78; RESP 17; TEMP 99.7; O2SAT 97
[2025-04-05 05:00] VITALS: BP 138/73; PULSE 63; RESP 17; TEMP 99.8; O2SAT 95
[2025-04-05 08:00] VITALS: PULSE 61
[2025-04-05 09:00] VITALS: BP 123/60; PULSE 72; RESP 18; TEMP 98.1; O2SAT 96
[2025-04-05] MEDS: FINASTERIDE 5 MG TAB PO SCH (09:32)
[2025-04-05] MEDS: LOSARTAN POTASSIUM 25 MG TAB PO SCH (09:32)
--- NOTE | 2025-04-05 10:54 | DVHPN2 ---
Progress Note - Dictate Date Seen: April 05, 2025 Medical Necessity Reason Pt with a Central, PICC or Fol: No Subjective Mr. Lee is a 69 years old right-handed gentleman with a history of hypertension, diabetes, he came to the [facility] on 04/02/2025 with a chief company of seizure-like activity. I have seen and examined the patient, I have talked to his nurse. He is doing fine, fully oriented, no new complaints Urology input appreciated UA, 04/03/2025: WBC: 1, urine leukocyte esterase: Negative WBC/HB/PLT/MCV, 04/03/2025: 12.2/10.2/220/94.2 CMP, 04/02/2025: Unremarkable EEG, 04/04/2025: Normal Carotid Doppler, 04/03/2025: No evidence of hemodynamically significant CCA or ICA stenosis MRI head, 04/03/2025: 1. There is no acute intracranial process. 2. 1.4 cm meningioma in the right posterior cranial fossa, superior to the right cerebellum. vital signs Vital Sign Date Time Temp Pulse Resp B/P (MAP) Pulse Ox O2 Delivery O2 Flow Rate FiO2 04/05/25 09:32 123/60 04/05/25 09:00 98.1 72 18 96 98.1 04/05/25 08:00 Room Air* 0 21 Total Intake and Output 04/04/25 04/04/25 04/05/25 15:00 23:00 07:00 Intake Total 784 ml 350 ml Output Total 750 ml 1650 ml 1150 ml Balance -750 ml -866 ml -800 ml medications Current Medications Medications Dose Ordered Sig/[place] Route Start Time Stop Time Status Last Admin Dose Admin Tamsulosin HCl 0.4 mg QPM PO 04/03/25 18:00 04/04/25 16:37 0.4 MG Ondansetron HCl 4 mg Q4HP PRN IV 04/03/25 00:00 Acetaminophen 650 mg Q6HP PRN PO 04/03/25 00:00 04/04/25 20:47 650 MG Nitroglycerin 0.4 mg Q5MINP PRN SL 04/03/25 00:00 Morphine Sulfate 2 mg Q30M PRN IV 04/03/25 00:00 Oxycodone/ Acetaminophen 1 tab Q4HP PRN PO 04/03/25 11:45 04/05/25 07:59 1 TAB Rivaroxaban 10 mg DAILY PO 04/04/25 10:00 04/05/25 09:32 10 MG Docusate Sodium 100 mg BIDPRN PRN PO 04/03/25 11:45 04/05/25 09:31 100 MG Finasteride 5 mg DAILY PO 04/05/25 10:00 04/05/25 09:32 5 MG Losartan Potassium 25 mg DAILY PO 04/05/25 10:00 04/05/25 09:32 25 MG objective General: the patient is well developed and nourished. No acute distress. MENTAL STATUS: Awake and alert. Oriented to person, place, time and general circumstances. Able to give personal history. SPEECH, LANGUAGE, HIGHER CORTICAL FUNCTION: no aphasia or dysathria. CRANIAL NERVES: Pupils are equal, round and reactive. EOMs full and conjugate. No nystagmus. Facial sensation intact in all three divisions bilaterally. Mandibular strength intact. Facial muscles symmetrical and strength intact. SENSATION: Sensation to touch and pinprick is normal. MOTOR: Normal tone in the upper and lower extremity. Normal muscle bulk. No fasciculations. No abnormal movements or posturing. Muscle strength of the major groups in the upper and right lower extremities is 5/5, he can move the left lower extremity. REFLEXES: Deep tendon reflexes are symmetrical (status post left knee replacement). No pathological reflexes. CEREBELLAR/COORDINATION: Finger to nose is normal bilaterally. GAIT/STATION: deferred laboratory and microbiology Laboratory Tests 04/04/25 06:25 Test 04/04/25 06:25 Range/Units Serum Glucose 108 H 74-106 mg/dL Problem List Passing with generalized convulsion Convulsive syncope secondary to and seizure agent effects, intense pain Grand mal seizure, less likely Status post left knee replacement Meningioma Urinary intention on Trevino catheterization Assessment/Plan Monitoring Supportive treatment Telemetry Xarelto 10 mg daily Ativan for seizure activity Preventive seizure treatment is not indicated Urologic on case More recommendation per clinical course Okay to discharge from a neurologic point of view This medical document was created using an electronic medical record system with [employer] dictation system. Although this document has been carefully reviewed, there may still be some phonetic and typographical errors. These areas are purely typographical due to imperfections of the software programs, and do not reflect any compromise in the patient's medical care Prognosis poor Plan discussed with: Patient, Other KERI ZHANG MD April 05, 2025 10:54
[2025-04-05] MEDS: ONDANSETRON HCL 4 MG/2 ML VIAL IV PRN (11:19)
[2025-04-05 13:00] VITALS: BP_SYST 114; BP_SYST 121; BP_SYST 124; BP_DIAS 51; BP_DIAS 54; BP_DIAS 56; PULSE 83; RESP 17; TEMP 98; O2SAT 96
--- NOTE | 2025-04-05 15:04 | DVHDS2 ---
Discharge Summary Date of Admission April 02, 2025 at 23:53 Date of Discharge: April 05, 2025 Labs/Diagnostic Data: Laboratory Results Test 04/04/25 06:25 04/03/25 21:30 04/03/25 00:32 04/02/25 22:51 White Blood Count 7.1 10^3/uL (4.4-10.8) Red Blood Count 2.78 10^6/uL (4.5-5.90) Hemoglobin 9.4 g/dL (13.5-17.5) Hematocrit 26.2 % (41.0-53.0) Mean Corpuscular Volume 94.4 fL (80.0-100.0) Mean Corpuscular Hemoglobin 33.8 pg (28.0-32.0) Mean Corpuscular Hemoglobin Concent 35.8 g/dL (32.0-36.0) Red Cell Distribution Width 13.3 % (11.8-14.3) Platelet Count 192 10^3/uL (140-450) Mean Platelet Volume 7.7 fL (6.9-10.8) Neutrophils (%) (Auto) 66.2 % (37.0-80.0) Lymphocytes (%) (Auto) 20.4 % (10.0-50.0) Monocytes (%) (Auto) 11.5 % (0.0-12.0) Eosinophils (%) (Auto) 1.4 % (0.0-7.0) Basophils (%) (Auto) 0.5 % (0.0-2.0) Neutrophils # (Auto) 4.7 10 ^3/uL (1.6-8.6) Lymphocytes # (Auto) 1.4 10 ^3/uL (0.4-5.4) Monocytes # (Auto) 0.8 10 ^3/uL (0-1.3) Eosinophils # (Auto) 0.1 10 ^3/uL (0-0.8) Basophils # (Auto) 0 10 ^3/uL (0-0.2) Nucleated Red Blood Cells 0.2 % Sodium Level 140 mmol/L (136-145) Potassium Level 3.9 mmol/L (3.5-5.1) Chloride Level 108 mmol/L (98-107) Carbon Dioxide Level 25 mmol/L (20-31) Anion Gap 7 (5-15) Blood Urea Nitrogen 17 mg/dL (9-23) Creatinine 1.03 mg/dL (0.700-1.30) Glomerular Filtration Rate Calc 78 mL/min (>90) BUN/Creatinine Ratio 16.5 (10.0-20.0) Serum Glucose 108 mg/dL (74-106) Calcium Level 8.6 mg/dL (8.7-10.4) Urine Color Light-yellow (Yellow) Urine Clarity Clear (Clear) Urine pH 5.5 (5.0-9.0) Urine Specific [place] 1.009 (1.001-1.035) Urine Protein Negative (Negative) Urine Ketones Negative (Negative) Urine Blood Negative /uL (Negative) Urine Nitrite Negative (Negative) Urine Bilirubin Negative (Negative) Urine Urobilinogen Normal mg/dL (Negative) Urine Leukocyte Esterase Negative /uL (Negative) Urine RBC 2 /hpf (0 - 3) Urine Microscopic WBC < 1 /HPF (0-3) Urine Squamous Epithelial Cells None seen /hpf (<5) Urine Bacteria None seen /hpf (None Seen) Urine Glucose Normal mg/dL (Normal) Troponin I High Sensitivity 31 ng/L (</=54) Total Bilirubin 1.2 mg/dL (0.2-1.0) Aspartate Amino Transferase (AST) 21 U/L (13-40) Alanine Aminotransferase (ALT) 29 U/L (7-40) Alkaline Phosphatase 32 U/L (46-116) B-Type Natriuretic Peptide 52.26 pg/mL (0-100) Total Protein 5.0 g/dL (5.7-8.2) Albumin 3.2 g/dL (3.2-4.8) Other Laboratory Tests 04/04/25 06:25 Brief Hx & Hospital Course: SEE DICTATED NOTE Condition at Discharge: Fair Final Diagnosis/Problems List SYNCOPY Discharge Disposition: Home Discharge Instruct/Medications Diet: Cardiac 2g Na,low cholest Activity: No Restrictions, As Tolerated Follow Up/Referral: FU WITH [facility] Medications: RESUME HOME MEDS CARY WITH LEG BAG SCRIPT TO PHARMACY Discharge Statement: "Patient was advised to return to the ER or call 911 if any headaches, dizziness, shortness of breath, chest pain, abdominal pain, bleeding, fevers, or worsening of medical condition. Patient was counseled about treatment plan, medications, possible side effects, patientverbalized understanding. All questions were answered to the best of my ability. This discharge took greater then 30 minutes in planning, reviewing documentation, counseling the patient, and discussing with other team members." ASSESSMENT ASSESSMENT Assessment SYNCOPY Date of Service: April 05, 2025 Billing Provider: MANPREET SY MD Common Visit Codes: 28320-OGE/OBS DISCH DAY >30min MANPREET SY MD April 05, 2025 15:04
[2025-04-05] MEDS ORDERED: FINA5TAB4 PO (15:05)
[2025-04-05 17:00] VITALS: BP 139/70; PULSE 70; RESP 17; TEMP 97.7; O2SAT 95
--- NOTE | 2025-04-05 17:09 | DVHDS ---
DATE OF DISCHARGE: 04/05/2025 HISTORY OF PRESENT ILLNESS: The patient is a 69-year-old gentleman who recently had left knee surgery that developed syncope while driving home. The patient has history of hypertension, hyperlipidemia, and BPH. HOSPITAL COURSE: The patient had a brain MRI that showed no acute abnormality except for a 1.4 cm meningioma in the right posterior cranial fossa. The patient was seen in Neurology consult by Dr. Puga. The patient had carotid Dopplers that were negative. Echocardiogram done showed ejection fraction of 60%. The patient developed urinary retention while in the hospital and had to have a Trevino catheter placed. The patient is now improved in his symptoms. He will be discharged home to resume his home medications as well as to be on finasteride 5 mg daily and have a Trevino with a leg bag. He will follow up with [facility] and he will also have a CPM machine ordered. FINAL DIAGNOSES: Therefore: * Questionable likely syncope secondary to autonomic failure. * Status post left knee surgery. * Hypertension. * Hyperlipidemia. * BPH with urinary retention, status post Trevino catheter. Time spent in discharge planning and review of plan with the patient, , and nursing was 38 minutes. MD KARTIK Kinsey/CORDELL TID: [id number] RECEIPT: [id number]
== END 2025-04-05 17:45 | disposition home or self-care (01) | DRG 74 ==
LOC: ER 20:28 → EDBD 20:28 → EDUNIT# 20:28 → OVERFLOW 23:53 → TELE-WESTW 04-03 03:17
PROVIDERS: ADMIT Internal Medicine; ATTEND Internal Medicine
DX: G90.89 Other disorders of autonomic nervous system (principal); D32.0 Benign neoplasm of cerebral meninges; E11.9 Type 2 diabetes mellitus without complications; I10 Essential (primary) hypertension; E78.5 Hyperlipidemia, unspecified; R33.8 Other retention of urine; N40.1 Benign prostatic hyperplasia with lower urinary tract symptoms; Z96.652 Presence of left artificial knee joint; Z83.3 Family history of diabetes mellitus; Z82.49 Family history of ischemic heart disease and other diseases of the circulatory system; Z79.899 Other long term (current) drug therapy; Z79.01 Long term (current) use of anticoagulants
CPT/HCPCS: 36415; 70450; 70551; 71045; 80048; 80053; 81001; 83880; 84484; 85025; 93005; 93306; 93886; 95819; 97110; 97116; 97163; 97530; G0378; J2405